=== PATIENT | male | born 1930 | race Caucasian/White ===

== ENCOUNTER 2016-12-29 07:09 | Inpatient (IN) | payer OTHER, MEDICARE ==
--- NOTE | 2016-12-29 07:11 | EDPHY ---
H & P Time Seen by Provider: 12/29/16 07:10 - Medical/Surgical History Hx Asthma: No Hx Chronic Respiratory Disease: No Hx Diabetes: No Hx Cardiac Disease: No Hx Renal Disease: No Hx Cirrhosis: No Hx Alcoholism: No Hx HIV/AIDS: No Hx Splenectomy or Spleen Trauma: No Other PMH: TURP, dementia, Depression, chronic back pain, back surgery 1970, Low resting heart rate, UTI, Hepatitis C - Social History Smoking Status: Former smoker Constitutional: Initial Vital Signs Temperature (C) 37.3 C 12/29/16 07:10 Heart Rate 96 12/29/16 07:10 Respiratory Rate 18 12/29/16 07:10 Blood Pressure 114/95 H 12/29/16 07:10 O2 Sat (%) 83 L 12/29/16 07:10 O2 Delivery Mode Nasal Cannula O2 (L/minute) 4 Allergies/Adverse Reactions: No Known Allergies Allergy (Verified 12/29/16 07:22) Home Medications: Medication Instructions Recorded Donepezil HCl [Aricept] 10 mg PO DAILY 12/29/16 Finasteride [Proscar 5 MG (*)] 5 mg PO DAILY 12/29/16 Melatonin [Melatonin 5 mg] 5 mg PO 12/29/16 Polyethylene Glycol 3350 [Miralax 17 gm PO PRN 12/29/16 17 gm (*)] Tamsulosin HCl [Flomax 0.4 MG (*)] 0.4 mg PO 12/29/16 Zolpidem Tartrate [Ambien 5MG (*)] 2.5 mg PO HS PRN 12/29/16 celeCOXIB [CeleBREX] 100 mg PO 12/29/16 oxyCODONE IR [Oxycodone Ir (*)] 5 mg PO PRN 12/29/16 Medical Decision Making ED Course/Re-evaluation: CHIEF COMPLAINT: Fever, epistaxis HISTORY OF PRESENT ILLNESS: The patient is an 86 y/o male arriving via EMS complaining of a fever and epistaxis with one episode of posttussive vomiting onset this morning. He has a history of dementia and it is unclear if he is currently at baseline cognitively. Per EMS, he had one episode of brownish-red vomit this morning after vomiting, but notes it was shortly after drinking hot chocolate. The facility reported a fever of 103F to EMS and administered Tylenol around 06:00. They also note decreased urine output. The patient complains of chronic back pain for which he takes multiple opioids. REVIEW OF SYSTEMS: Limited by patient's Dementia. PHYSICAL EXAM: HR, BP, O2 Sat, RR. Temp noted General Appearance: Alert, well hydrated, appropriate, and non-toxic appearing. Head: Atraumatic without scalp tenderness or obvious injury Eyes: Pupils equal, round, reactive to light and accommodation, EOMI, no trauma , no injection. Ears: Clear bilaterally, no perforation, normal landmarks Nose: Atraumatic, no rhinorrhea, clear. Throat: There is no erythema or exudates, no lesions, normal tonsils, mucus membranes moist. Neck: Supple, 2+ carotid upstroke, nontender, no lymphadenopathy. Respiratory: No retractions, no distress, no wheezes, and no accessory muscle use. Lungs are clear to auscultation bilaterally. Cardiovascular: Regular rate and rhythm, no murmurs, rubs, or gallops. Bilateral carotid, radial, dorsalis pedis, and posterior tibial pulses intact. Good capillary refill all extremities. Gastrointestinal: Abdomen is soft, nontender, non-distended, no masses, no rebound, no guarding, no peritoneal signs. Musculoskeletal: Normal active ROM of all extremities, atraumatic. Neurological: Alert, oriented x1, and interactive. The patient has normal DTRs and non-focal cranial nerves, motor, sensory, and cerebellar exam. Skin: No rashes, good turgor, no nodules on palpation. Past medical history: Dementia, epistaxis cautery, depression, chronic back pain , likely sick sinus syndrome without pacemaker, UTI, hepatitis C Past surgical history: back surgery 1969, TUR Family history: Noncontributory Social history: Lives at [facility], at bedside. DNR status. Prior medical records reviewed including ED visit 10/21/16 for near-syncope. DIAGNOSTICS/PROCEDURES/CRITICAL CARE TIME: Study: Chest x-ray Indication: Fever, hypoxemia Results: Chest x-ray was obtained. The results of the study are diffuse patchy infiltrate. Radiologist report pending. I viewed the images myself on the PACS system. DIFFERENTIAL DIAGNOSIS: The differential diagnosis for the patient's fever included but was not limited to pneumonia, urinary tract infection, viral syndrome, meningitis, and sepsis. MEDICAL DECISION MAKING: This is a 86 y/o male with a history of dementia arriving from a memory care unit with reported fever, cough, vomiting, and epistaxis. It is difficult to tell if he is cognitively at baseline due to his dementia. On exam, his lung sounds are normal and he is afebrile, but he is hypoxemic at 81% on room air and does not use home O2. Plan to work up for sepsis and identify source of infection. In addition to IV fluids and sepsis labs, we will perform a chest x- ray, UA, and flu swab. 0830: Severe sepsis identified due to elevated heart rate, WBC >12, lactate >2, and source of infection on chest x-ray. Plan to repeat lactate and cultures, 750mg IV Levaquin, and 2500mL IV NS bolus. We will admit for community-acquired pneumonia and hypoxemia if patient's is amenable as she is his POA. 0854: Spoke with patient's son, who arrived at bedside and is involved in patient's care decisions. They are unsure if they want to admit and want to speak with another son prior to deciding on admission. Family has agreed to admission. 0915: Spoke with hospitalist service. Dr. Moreno accepts admission to PCU. - Data Points Laboratory Results: Laboratory Results 12/29/16 07:05 12/29/16 07:05 12/29/16 12/29/16 12/29/16 08:07 07:55 07:05 WBC RBC Hgb Hct MCV MCH MCHC RDW Plt Count MPV Neut % (Auto) Lymph % (Auto) [place] % (Auto) Eos % (Auto) Baso % (Auto) Nucleat RBC Rel Count Absolute Neuts (auto) Absolute Lymphs (auto) Absolute Monos (auto) Absolute Eos (auto) Absolute Basos (auto) Absolute Nucleated RBC Immature Gran % Immature Gran # PT INR APTT VBG Lactic Acid 2.8 mmol/L H mmol/L (0.7-2.1) Sodium 140 mEq/L mEq/L (134-144) Potassium 4.9 mEq/L mEq/L (3.5-5.2) Chloride 103 mEq/L mEq/L (97-110) Carbon Dioxide 23 mEq/l mEq/l (22-31) Anion Gap 14 mEq/L mEq/L (8-16) BUN 27 mg/dL H mg/dL (7-23) Creatinine 1.0 mg/dL mg/dL (0.7-1.3) Estimated GFR > 60 Glucose 157 mg/dL H mg/dL (70-100) Calcium 9.9 mg/dL mg/dL (8.5-10.4) Total Bilirubin 1.1 mg/dL mg/dL (0.1-1.4) Influenza Typ A,B (DFA) NEGATIVE FOR FLU (NEGATIVE) 12/29/16 12/29/16 07:05 07:05 WBC 12.83 10^3/uL H 10^3/uL (3.80-9.50) RBC 5.00 10^6/uL 10^6/uL (4.40-6.38) Hgb 16.0 g/dL g/dL (13.7-17.5) Hct 46.1 % % (40.0-51.0) MCV 92.2 fL fL (81.5-99.8) MCH 32.0 pg pg (27.9-34.1) MCHC 34.7 g/dL g/dL (32.4-36.7) RDW 14.5 % % (11.5-15.2) Plt Count 265 10^3/uL 10^3/uL (150-400) MPV 9.6 fL fL (8.7-11.7) Neut % (Auto) 85.6 % H % (39.3-74.2) Lymph % (Auto) 8.7 % L % (15.0-45.0) [place] % (Auto) 3.7 % L % (4.5-13.0) Eos % (Auto) 1.2 % % (0.6-7.6) Baso % (Auto) 0.2 % L % (0.3-1.7) Nucleat RBC Rel Count 0.0 % % (0.0-0.2) Absolute Neuts (auto) 10.97 10^3/uL H 10^3/uL (1.70-6.50) Absolute Lymphs (auto) 1.12 10^3/uL 10^3/uL (1.00-3.00) Absolute Monos (auto) 0.48 10^3/uL 10^3/uL (0.30-0.80) Absolute Eos (auto) 0.16 10^3/uL 10^3/uL (0.03-0.40) Absolute Basos (auto) 0.02 10^3/uL 10^3/uL (0.02-0.10) Absolute Nucleated RBC 0.00 10^3/uL 10^3/uL (0-0.01) Immature Gran % 0.6 % % (0.0-1.1) Immature Gran # 0.08 10^3/uL 10^3/uL (0.00-0.10) PT 13.8 SEC SEC (12.0-15.0) INR 1.07 (0.83-1.16) APTT 23.6 SEC SEC (23.0-38.0) VBG Lactic Acid Sodium Potassium Chloride Carbon Dioxide Anion Gap BUN Creatinine Estimated GFR Glucose Calcium Total Bilirubin Influenza Typ A,B (DFA) Medications Given: Discontinued Medications Sodium Chloride (Ns *For Sepsis Order Set Only*) 2,000 ml IV EDNOW ONE Stop: 12/29/16 08:28 Last Admin: 12/29/16 08:25 Dose: 2,000 ml Departure - Departure Disposition: [facility] Inpatient Acute Clinical Impression: Community acquired pneumonia, Hypoxemia Condition: Fair Referrals: Patient,NotPresent [Unknown] - As per Instructions Report Scribed for: Malcolm Soto Report Scribed by: Carlie Hanna Date of Report: 12/29/16 Time of Report: 07:12
[2016-12-29 07:25] LABS: % IMMATURE GRANULYOCYTES 0.6 % (0.0-1.1); ABSOLUTE IMMATURE GRANULOCYTES 0.08 10^3/uL (0.00-0.10); ADD DIFF? NO; ADD MORPH? NO; ADD SCAN? NO; ATYPICAL LYMPHOCYTE FLAG 0 (0-99); FRAGMENT RBC FLAG 0 (0-99); HEMATOCRIT 46.1 % (40.0-51.0); LEFT SHIFT FLG 0 (0-99); LIPEMIA HEMOLYSIS FLAG 90 (0-99); MEAN CELL HEMOGLOBIN CONCENTR. 34.7 g/dL (32.4-36.7); MEAN CELL VOLUME 92.2 fL (81.5-99.8); MEAN PLATELET VOLUME 9.6 fL (8.7-11.7); PLATELET CLUMPS FLAG 20 (0-99); PLATELET COUNT 265 10^3/uL (150-400); RED CELL DISTRIBUTION WIDTH 14.5 % (11.5-15.2)
[2016-12-29 07:37] LABS: APTT 23.6 SEC (23.0-38.0); INR 1.07 (0.83-1.16); PROTIME(PATIENT) 13.8 SEC (12.0-15.0)
[2016-12-29 07:54] LABS: ANION GAP 14 mEq/L (8-16); BILIRUBIN,TOTAL 1.1 mg/dL (0.1-1.4); CALCIUM 9.9 mg/dL (8.5-10.4); CARBON DIOXIDE 23 mEq/l (22-31); CHLORIDE 103 mEq/L (97-110); GLOMERULAR FILTRATION RATE > 60; GLUCOSE 157 mg/dL (70-100); POTASSIUM 4.9 mEq/L (3.5-5.2); SODIUM 140 mEq/L (134-144)
[2016-12-29] MEDS ORDERED: NS 1,000 ML BAG *FOR SEPSIS ORDER SET ONLY IV ONE (08:27)
[2016-12-29] MEDS ORDERED: NS 500 ML IV ONE (08:38)
[2016-12-29 09:13] LABS: LACGHOST ORDER
[2016-12-29] MEDS ORDERED: HYDROmorphONE/DILAUDID 1 MG/ML SYR ONE (09:42)
[2016-12-29] MEDS ORDERED: HYDROmorphONE/DILAUDID 1 MG/ML SYR IVP ONE (09:53)
[2016-12-29] MEDS ORDERED: LORazepam 2 MG/ML INJ IVP ONE (10:09)
[2016-12-29 10:11] LABS: COLOR AMBER; LEUKOCYTE ESTERASE,URINE NEGATIVE (NEGATIVE); NITRITE,URINE NEGATIVE (NEGATIVE)
[2016-12-29 10:16] LABS: BACTERIA TRACE /hpf (NONE SEEN); MUCUS 3+ /lpf (NONE-1+)
[2016-12-29] MEDS ORDERED: ONDANSETRON 4 MG/2 ML VIAL IVP PRN (12:23)
--- NOTE | 2016-12-29 12:58 | GHP ---
DATE OF ADMISSION: 12/29/2016 CHIEF COMPLAINT: Fever. HISTORY OF PRESENT ILLNESS: This is an 86-year-old male with history of dementia, which limits my a bility to take a history, presented to the emergency department by EMS after he was found to have a fever, nosebleed, and cough. Reportedly, the patient moved to assisted living at [facility] recently. Per ER and EMS report, he had 1 episode of brownish red vomit this morning that pelletier ppened after he was drinking hot chocolate. He was noted to have a temperature of 103 degrees. He was given Tylenol. He was reported to have decreased urine output. Patient has chronic low back pa in. During the time of my exam, the patient states that he does have pain. However, he does not ap pear to be a very reliable historian. He is only oriented to person. PAST MEDICAL HISTORY: Dementia, depression, chronic low back pain, sick sinus syndrome, urinary tra ct infection, hepatitis C, epistaxis requiring cautery. PAST SURGICAL HISTORY: Back surgery in the 70s, TURP. HOME MEDICATIONS: Reviewed. Refer to [employer] for details. ALLERGIES: No known drug allergies. SOCIAL HISTORY: Patient lives at [facility]. No history of alcohol, tobacco, or illi cit drug use currently. The patient is a former smoker. FAMILY HISTORY: Unobtainable. REVIEW OF SYSTEMS: A comprehensive 10-point review of systems was attempted. However, this was mohini btainable due to the patient's dementia and disorientation. PHYSICAL EXAMINATION: VITAL SIGNS: Blood pressure currently 93/55, pulse 91, respiratory rate 23, O2 saturation 95% on 5 L. T max was 38.5 at 9:55 this morning. GENERAL: Ill-appearing. HEAD: No rmocephalic, atraumatic. EYES: PERRLA. MOUTH: Dry oral mucosa. NECK: Supple. No lymphadenopath y. CARDIOVASCULAR: S1, S2. No JVD. No lower extremity edema. PULMONARY: Lungs are clear. No w heezes, rales, or rhonchi. No respiratory distress. ABDOMEN: Soft, nontender, nondistended. No g uarding or rebound tenderness. Normoactive bowel sounds. EXTREMITIES: No clubbing or cyanosis. N EURO: Patient is oriented to person only. His face appears to be symmetric. He is moving all extr emities. There are no obvious focal motor deficits. SKIN: Clear. No rashes. There is a small sk in tear on his right forearm. DIAGNOSTICS: WBC is 12.8, hemoglobin 16, hematocrit 46.1, platelets 265. Venous lactic acid 2.8. Sodium 140, potassium 4.9, chloride 103, CO2 of 23, BUN 27, creatinine 1, glucose 157. UA negative leukocyte esterase, negative nitrite. Influenza A and B by DFA was negative. Chest x-ray, which I visualized and personally interpreted, shows no obvious infiltrate. The radiologist reports a possi ble patchy consolidation at the left base. ASSESSMENT: This is an 86-year-old male with history of dementia, recently move to memory care unit who presents with: 1. Severe sepsis with lactic acid of 2.8 with the most likely source being below. 2. Suspect community-acquired pneumonia versus other occult infection. 3. Dementia. 4. Prerenal azotemia. PLAN: 1. Admit to hospital. 2. Continue levofloxacin that was started in the emergency department. 3. Follow up blood cultures. 4. Will repeat influenza by PCR. 5. Gentle IV hydration. Per ER report, the patient is DNR status, which will be confirmed. /[id number]/MODL
[2016-12-29] MEDS ORDERED: HALOPERIDOL LACT 5 MG/ML INJ IV PRN (17:30)
[2016-12-29] MEDS ORDERED: VANCOMYCIN 1.25 GM in D5W 250 ML IV SCH (18:00)
[2016-12-29] MEDS ORDERED: ceFAZolin 2 GM/DEXTROSE 100 ML IV SCH (19:00)
[2016-12-29] MEDS: TAMSULOSIN HCL 0.4 MG CAP PO SCH (20:26)
[2016-12-29] MEDS: MELATONIN 3 MG TAB PO SCH (20:26)
[2016-12-29] MEDS: guaiFENesin 600 MG TAB.ER PO SCH (20:26)
[2016-12-29] MEDS: ceFAZolin 2 GM in D5W 100 ML IV SCH (20:27)
[2016-12-29] MEDS ORDERED: MELATONIN PO SCH (21:00)
[2016-12-30] MEDS: ACETAMINOPHEN 325 MG TAB PO PRN ×2 (01:25→16:15)
[2016-12-30] MEDS: ceFAZolin 2 GM in D5W 100 ML IV SCH (05:45)
[2016-12-30] MEDS: oxyCODONE IR 5 MG TAB PO PRN ×3 (06:05→17:37)
[2016-12-30 06:10] LABS: ADD DIFF? YES; ADD MORPH? NO; ADD SCAN? NO; ATYPICAL LYMPHOCYTE FLAG 0 (0-99); FRAGMENT RBC FLAG 0 (0-99); HEMATOCRIT 39.9 % (40.0-51.0); HEMOGLOBIN 13.5 g/dL (13.7-17.5); LEFT SHIFT FLG 60 (0-99); LIPEMIA HEMOLYSIS FLAG 90 (0-99); MEAN CELL HEMOGLOBIN 31.7 pg (27.9-34.1); MEAN CELL HEMOGLOBIN CONCENTR. 33.8 g/dL (32.4-36.7); MEAN CELL VOLUME 93.7 fL (81.5-99.8); MEAN PLATELET VOLUME 9.5 fL (8.7-11.7); PLATELET CLUMPS FLAG 0 (0-99); PLATELET COUNT 170 10^3/uL (150-400); RED BLOOD CELL COUNT 4.26 10^6/uL (4.40-6.38); RED CELL DISTRIBUTION WIDTH 15.1 % (11.5-15.2)
[2016-12-30 06:29] LABS: ANION GAP 8 mEq/L (8-16); CALCIUM 9.2 mg/dL (8.5-10.4); CARBON DIOXIDE 24 mEq/l (22-31); CHLORIDE 106 mEq/L (97-110); GLOMERULAR FILTRATION RATE > 60; GLUCOSE 114 mg/dL (70-100); POTASSIUM 4.3 mEq/L (3.5-5.2); SODIUM 138 mEq/L (134-144)
[2016-12-30 06:46] LABS: PLATELET ESTIMATE ADEQUATE (ADEQ)
[2016-12-30] MEDS: ENOXAPARIN 40 MG/0.4 ML SYR SC SCH (08:32)
[2016-12-30] MEDS: DONEPEZIL HCL 5 MG TAB PO SCH (08:32)
[2016-12-30] MEDS: guaiFENesin 600 MG TAB.ER PO SCH ×2 (08:32→20:19)
[2016-12-30] MEDS ORDERED: NON-FORMULARY NEW DRUG (Donepezil Hcl [Aricept] 10 MG) PO SCH (09:00)
[2016-12-30] MEDS ORDERED: AZITHROMYCIN 250 MG TAB PO SCH (09:00)
[2016-12-30] MEDS: FINASTERIDE 5 MG TAB PO SCH (09:40)
[2016-12-30] MEDS: POLYETHYLENE GLYCOL 3350 17 GM PKT PO SCH (09:46)
--- NOTE | 2016-12-30 11:05 | HOSPPROG ---
Hospitalist Progress Note Assessment/Plan: 86 y/o male presenting with #severe sepsis with gram positive bacteremia (unknown source) query lumbar spine infection in the setting of severe acute on chronic low back pain. Doubt pneumonia. #dementia with acute encephalopathy #acute on chronic low back pain plan -cont vanco for now, but this is problematic since patient has been intolerant of IVs and had pulled multiple lines. -I discussed the severity of the patient's condition with his and son who would like to pursue a hospice consultation, but would like to continue to try iv abx for now -trial Roxanol/Valium/Haldol for back pain/spasm/agitation -start main ivf Pt is high risk Subjective: reports back pain, but is confused and doesn't really say anything else Objective: Vital Signs Temp Pulse Resp BP Pulse Ox 37.2 C 85 20 95/68 L 85 L 12/30/16 08:00 12/30/16 08:00 12/30/16 08:00 12/30/16 08:00 12/30/16 08:00 Laboratory Results 12/30/16 05:30 12/30/16 05:30 12/29/16 12/30/16 12/31/16 05:59 05:59 05:59 Intake Total 3050 120 Output Total 300 Balance 2750 120 PT 13.8 SEC (12.0-15.0) 12/29/16 07:05 INR 1.07 (0.83-1.16) 12/29/16 07:05 - Physical Exam Constitutional: chronically ill appearing, uncomfortable Eyes: PERRL, anicteric sclera, EOMI Cardiovascular: regular rate and rhythym, no murmur, rub, or gallop Respiratory: no respiratory distress, no rales or rhonchi, clear to auscultation Gastrointestinal: normoactive bowel sounds, soft, non-tender abdomen, no palpable masses, No guarding, No rebound Neurologic: other (aaox1 (person only)) Psychiatric: encephalopathic, poor insight, poor judgement, poor memory ICD10 Worksheet Patient Problems: Problems Problem Status Onset Community acquired pneumonia Acute Hypoxemia Acute
[2016-12-30] MEDS ORDERED: D5W 1/2 NS W/ 20 KCl/L 1,000 ML IV SCH (11:15)
[2016-12-30] MEDS: DIAZEPAM 5 MG TAB PO PRN ×2 (11:18→17:37)
[2016-12-30] MEDS: morphINE 10 MG/0.5 ML UDSYR PO PRN ×4 (11:18→17:31)
[2016-12-30] MEDS: HALOPERIDOL 2 MG TAB PO PRN (13:41)
[2016-12-30] MEDS: TAMSULOSIN HCL 0.4 MG CAP PO SCH (20:19)
[2016-12-30] MEDS: MELATONIN 3 MG TAB PO SCH (20:19)
[2016-12-31 07:59] VITALS: BP 116/63; PULSE 129; RESP 22; TEMP 98.3; O2SAT 89
[2016-12-31] MEDS: FINASTERIDE 5 MG TAB PO SCH (08:02)
[2016-12-31] MEDS: guaiFENesin 600 MG TAB.ER PO SCH (08:02)
[2016-12-31] MEDS: oxyCODONE IR 5 MG TAB PO PRN (08:02)
[2016-12-31] MEDS: DONEPEZIL HCL 5 MG TAB PO SCH (08:02)
[2016-12-31] MEDS: ENOXAPARIN 40 MG/0.4 ML SYR SC SCH (08:02)
[2016-12-31] MEDS: morphINE 10 MG/0.5 ML UDSYR PO PRN ×3 (09:13→13:24)
[2016-12-31] MEDS: POLYETHYLENE GLYCOL 3350 17 GM PKT PO SCH (10:10)
--- NOTE | 2016-12-31 12:48 | PDIAF ---
- Diagnosis Diagnosis: gram positive bacteremia Code Status: Do Not Resuscitate - Medication Management Discharge Medications: Medications to Continue on Transfer Melatonin [Melatonin 3 MG (*)] 3 mg PO HS #0 tab 12/31/16 [Last Taken Unknown] morphINE [Roxanol 10 mg/0.5 ml oral soln (*)] 5 mg PO Q2HRS PRN #0 udsyr [Last Taken Unknown] Discharge Medications: Refer to the Discharge Home Medication list for PRN reason. - Orders Diet Texture: Regular Texture Diet, Thin Liquids, Meds Crushed in Puree - Follow Up Care Current Providers and Referrals: Patient,NotPresent [Unknown] - As per Instructions
--- NOTE | 2016-12-31 13:17 | GDS ---
DISCHARGE DIAGNOSES: 1. Severe sepsis. 2. Staphylococcus aureus methicillin sensitive. 3. Acute on chronic back pain. 4. Dementia with acute encephalopathy. CONSULTATIONS: None. HOSPITAL COURSE AND STAY BY PROBLEM: 1. Severe sepsis with a gram-positive/methicillin sensitive Staph aureus bacteremia of unclear sour ce: The patient was admitted to the hospital where his blood cultures grew MSSA. He was started on vancomycin; however, the patient was in intolerant of IV therapy with his dementia, which caused hi m to become quite agitated and pulled multiple IV lines. After a long discussion with the patient's family, they have decided to pursue hospice care, given the patient's worsening dementia and worsen ing acute on chronic low back pain. 2. Acute on chronic low back pain: The patient has a long history of back pain, but his pain did s eem to worsen prior to admission. It is possible that his back pain does represent a nidus of infec tion and possible epidural abscess or diskitis. The patient the family are not wishing to pursue an y invasive measures, so this was not further worked up. PHYSICAL EXAM: VITAL SIGNS: On day of discharge, blood pressure 116/63, pulse of 129, respiratory rate 22, O2 saturation 89% on 6 L. Temperature 36.8. GENERAL: Ill-appearing confused. DISCHARGE MEDICATIONS: Please refer to discharge medication reconciliation in [facility]. DISCHARGE INSTRUCTIONS: The patient will be transferred to the hospice care center for further comf ort treatment. The patient's family are aware of his poor prognosis, given his advanced dementia an d gram-positive bacteremia, without a clear source. /[id number]/MODL
[2016-12-31] MEDS: HALOPERIDOL 2 MG TAB PO PRN (13:24)
== END 2016-12-31 13:40 | disposition hospice, home (50) | DRG 871 ==
LOC: EDUNIT# → F2W 10:49 → F3E 12-30 21:06
PROVIDERS: ADMIT Internal Medicine; ATTEND Family Medicine
DX: A41.01 Sepsis due to Methicillin susceptible Staphylococcus aureus (principal); G93.49 Other encephalopathy; R65.20 Severe sepsis without septic shock; G89.29 Other chronic pain; M54.9 Dorsalgia, unspecified; F03.90 Unspecified dementia, unspecified severity, without behavioral disturbance, psychotic disturbance, mood disturbance, and anxiety; Z87.891 Personal history of nicotine dependence
CPT/HCPCS: 92526-GN; 92610-GN; 96365; 96366; 97161-GP; 97166-GO; G8981-GP-CM; G8982-GP-CJ; G8987-GO-CM; G8988-GO-CI; G8996-GN-CI; G8997-GN-CI; J0690; J0696; J1170; J1650; J1956; J3370